=== PATIENT | female | born 1930 | race Caucasian/White ===

== ENCOUNTER 2016-11-16 10:50 | Emergency (ER) | payer MEDICARE, OTHER ==
[~2016-11-16] VITALS: Ht 160 cm; Wt 75.0 kg
[~2016-11-16 10:50] MED LIST: AMLO5TAB2 PO; ATOR20TA65 PO; CHOL100045 PO; CYAN500T53 SL; FISH1CAP15 PO; LEVO100T6 PO; LOSA50TA37 PO; OXYB5TAB10 PO; RIVA20TA PO
[2016-11-16 11:01] VITALS: BP 145/83; PULSE 77; RESP 16; O2SAT 96
--- NOTE | 2016-11-16 11:10 | ED.REPORT ---
HPI-Extremity Problem Lower Date of Service Nov 16, 2016 ED Provider: Daniel Phelps DO The patient is an 86 year old female who presents to the emergency department complaining of right lower leg pain, redness, bruising, and swelling that began 1 week ago. Her symptoms were worse this morning but have improved with walking. She denies any known injury or trauma. She is still able to walk and move all of her joint appropriately. The patient had her left knee replaced last year and subsequently developed a PE. She was treated with Xarelto and i still currently taking this. She denies chest pain or shortness of breath. Nursing Notes Stated Complaint: RIGHT LEG PAIN Chief Complaint: Extremity Trauma Nursing Notes Reviewed: Yes Allergies: Uncoded Allergies: NKDA (Allergy, Unknown, 10/25/16) Scheduled Amlodipine (Amlodipine) 5 Mg Tablet 5 MG PO DAILY Atorvastatin Calcium (Atorvastatin Calcium) 20 Mg Tablet 20 MG PO HS Cholecalciferol (Vitamin D3) (Vitamin D) 1,000 Unit Capsule 1,000 UNIT PO DAILY Cyanocobalamin (Vitamin B-12) (Vitamin B-12) 500 Mcg Tab.subl 500 MCG SL BID Fish Oil/Dha/Epa (Fish Oil 1,200 mg Fish Oil) 1 Each Capsule 1 EACH PO DAILY Levothyroxine (Levothyroxine) 100 Mcg Tablet 100 MG PO DAILY Losartan Potassium (Losartan Potassium) 50 Mg Tablet 50 MG PO DAILY Oxybutynin Chloride (Oxybutynin Chloride) 5 Mg Tablet 5 MG PO BID Rivaroxaban (Xarelto) 20 Mg Tablet 20 MG PO DAILYWD General Time Seen by MD: 10:56 Chief Complaint Leg injury right Hx Obtained From: Patient Arrived By: Walk-in Onset Occurred: 1 week ago Symptom Duration: Since onset Location: : Leg right Quality: Painful Severity: Current: Moderate Severity: Maximum: Moderate Associated with: Reports: Swelling Additional Notes: +redness and warmth Pertinent Negative: Pt denies other symptoms Recent Healthcare: No recent doctor visit, No recent hospitalization Similar Sx Previous: No Past Medical History Past Medical History 1. Neck surgery five years ago. 2. Borderline diabetes. 3. Chronic kidney disease stage 2, 30% renal artery narrowing on an MRI scan a few years ago. 4. Hypertension. 5. Hypothyroidism. 6. Hyperlipidemia. Past Surgical History Left knee replacement Neck surgery Family History Father age 60 of an [place]. Mother at age 76 with congestive heart failure. She had a brother who of cancer, sister of multiple sclerosis and another sister who had bad circulation also . Smoking History Never Smoker Social History Alcohol Use: 1-3 per day Drug Use: Denies drug use Other Social History: Good social support, Local resident Ambulatory Status Independent Review of Systems Musculoskeletal: Reports: Extremity pain, Extremity swelling, Joint pain, Joint swelling Skin: Reports Bruising, Reports Swelling Complete sys rev & neg: except as marked. Respiratory: Denies: Shortness of breath Cardiovascular: Denies: Chest pain Physical Exam Physical Exam Notes: Compartments are soft in the right lower extremity Initial Vital Signs Vital Signs (First) Date Time Temp Pulse Resp B/P Pulse Ox O2 Delivery O2 Flow Rate FiO2 11/16/16 11:01 36.4 77 16 145/83 96 Room Air Initial VS: Reviewed Head / Eyes: Atraumatic, Normocephalic, PERRL ENT: Mucous membranes moist, Conjunctiva normal, No scleral icterus Neck: Supple, Non-tender, Full range of motion Respiratory: No respiratory distress Lymphatic: No lymphadenopathy Upper Extremities: Vascular intact, Neuro intact, No swelling, No tenderness Skin: Warm, Dry, No cyanosis Neurologic: Alert, Oriented, Nonfocal Psychiatric: Mood/affect normal, Behavior normal, Normal thought content Lower Extremity / Pelvis / MS: Neurologic intact, Vascular intact Right lower extremity: Edema with tibial ecchymosis. Slightly warm to touch. Minimal erythema. No tender to touch. No induration or purulence. Ankle / Foot: Neurologic intact, Vascular intact General/Constitutional: Awake, Alert, No acute distress, Well appearing, Cooperative Interpretation & Diagnostics Interpretation & Diagnostics: RLE US: negative for DVT Lab Results Interpretation Test 11/16/16 11:48 Re-Eval/Medical Decision Med Decision/Clinical Course Patient has a right lower extremity hematoma, without obvious vascular flow, not rapidly expanding, no signs of compartment syndrome, no signs of deep vein thrombosis, no signs of infection. Patient declines even Tylenol. Will discharge to follow-up with PCP. Extensive follow-up precautions given. Source of Hx: Old records Re-Evaluation/Progress #1: Time of Eval: 11:23 Re-Evaluation/Progress Note: Discussed plan for US. Re-Evaluation/Progress #2: Time of Eval: 12:45 Re-Evaluation/Progress Note: Rechecked the patient. Discussed results, diagnosis, and plan for discharge. She reports she came here today because her family wanted her to be evaluated. She feels like her symptoms have actually improved. All questions were addressed. Counseled Regarding: Diagnosis, Need for follow-up, When/why to return to ED Discharge & Departure Impression: Primary Impression: Leg hematoma Encounter type: initial encounter Laterality: right Qualified Code: S80.11XA - Contusion of right lower leg, initial encounter Disposition: Home Discharge Condition All VS Reviewed: Yes Condition: Stable Additional Instructions: Continue your current medications. Follow-up with your primary care regarding your hematoma in your leg. Return to ER if develops severe uncontrolled pain in the leg, high fever, warmth or redness or extreme pain, chest pain, shortness of breath or other concerns. Referrals: Samantha Owens MD (PCP) Scribe Attestation Portions of this note were transcribed by Chyna Chapin. I, Dr. Phelps personally performed the history, physical exam and medical decision-making; I reviewed and confirmed the accuracy of the information in the transcribed note. Signed by: Rodney Olea, 11/16/2016 and 1255. copies to: Samantha Owens MD, Timothy S DO Nov 16, 2016 11:10 Chyna Chapin Nov 16, 2016 11:12
[2016-11-16 11:32] VITALS: BP 171/83; PULSE 80; RESP 20; O2SAT 98
[2016-11-16 13:15] VITALS: BP 152/72; RESP 14; O2SAT 98
--- NOTE | 2016-11-16 13:30 | DRSVH ---
PROCEDURE: US VEINOUS LEG DUPLEX UNILATERAL, RIGHT INDICATIONS: RLE swelling, H/O PE TECHNIQUE: Real-time imaging, as well as color and pulse Doppler interrogation, were performed of the lower extr emity deep veins from the inguinal ligament to the popliteal fossa. COMPARISON: None. FINDINGS: The deep veins are normally compressible, and free of intraluminal thrombus. Color and pu lse Doppler demonstrate normal phasic intraluminal flow. There is normal augmentation response to di stal compression maneuver. Complex fluid collection within the medial right anterior blevins measuring 11.1 x 2.6 x 3.7 cm. IMPRESSION: 1. No deep venous thrombosis identified within the right lower extremity. 2. Complex fluid collection within the right medial anterior blevins, likely an evolving hematoma. Gonzales dominick clinically. Dictated by: Nik SCHROEDER Interpreted: Lucretia Navarrete MD on 11/16/2016 at 13:29 Transcribed by: LARISA on 11/16/2016 at 13:29 Approved by: uLcretia Navarrete M.D. on 11/16/2016 at 15:26
== END 2016-11-16 13:16 | disposition home or self-care (01) ==
LOC: SED 10:50
DX: S80.11XA Contusion of right lower leg, initial encounter (principal); X58.XXXA Exposure to other specified factors, initial encounter; Y93.9 Activity, unspecified; Y99.9 Unspecified external cause status; Y92.9 Unspecified place or not applicable; I12.9 Hypertensive chronic kidney disease with stage 1 through stage 4 chronic kidney disease, or unspecified chronic kidney disease; N18.9 Chronic kidney disease, unspecified; Z86.39 Personal history of other endocrine, nutritional and metabolic disease; Z96.652 Presence of left artificial knee joint; Z86.711 Personal history of pulmonary embolism; Z79.01 Long term (current) use of anticoagulants

== ENCOUNTER 2016-12-16 08:54 | Day surgery (SDC) | payer MEDICARE, OTHER ==
[~2016-12-16] VITALS: Ht 162.6 cm; Wt 74.8 kg
[2016-12-16] MEDS ORDERED: MethylprednisoLONE Depot 80 mg/mL Inj IM ONE (08:55)
[2016-12-16] MEDS ORDERED: Iohexol 240 mg/mL 10 mL Inj ONE (08:55)
[2016-12-16] MEDS ORDERED: AMLO-39 PO (09:30)
[2016-12-16] MEDS ORDERED: LOV80 SUBQ (09:30)
[2016-12-16 09:37] VITALS: BP 177/83; PULSE 76; RESP 16; O2SAT 96
[2016-12-16 10:00] VITALS: BP 195/101; PULSE 75; RESP 14; O2SAT 95
--- NOTE | 2016-12-16 15:21 | PCM.PROC ---
Procedure Note Date of Service: Dec 16, 2016 Pre Procedure Diagnosis: PROCEDURE: Lumbar Interlaminar epidural steroid injection. L4-L5 ASA / ANTI-COAGULATION . No asa x 7 days. No Xarelto x7 days PRE-PROCEDURE DIAGNOSIS: Lumbar spinal stenosis POST-PROCEDURE DIAGNOSIS: same INDICATION: 86-year-old patient with low back and leg pain referred by Dr. Ag for L4-L5 interlaminar epidural steroid injection for lumbar spinal stenosis PERFORMED BY: Edgardo Louis MD DESCRIPTION OF PROCEDURE: Patient was met in the holding area. Consent was signed, site was confirmed and all questions were answered. Patient was taken to the procedure suite and placed prone on the procedure table. Area was prepped and draped in sterile fashion. Local anesthesia with 1% lidocaine was injected. An 18-gauge Touhy needle was advanced toward the interlaminar space using fluoroscopic guidance after optimizing the AP view. A loss of resistance syringe was attached as we approached the epidural space in the lateral view. After [id number] was obtained, radioopaque contrast was injected under live fluro which confirmed epidural placement without intravascular uptake. Then , 80 mg depomedrol was injected without difficulty. ANESTHESIA: Local. EBL: None. No Blood Products Used COMPLICATIONS: None SPECIMENS: None POST-PROCEDURE DISPOSITION: Patient was returned to the holding area in stable condition. They were discharged home when all discharge criteria were met. Evaluation/Physical Exam before discharge revealed: DISCHARGE MEDICATIONS: FOLLOW UP: Followup with Dr. Ag in 2-4 weeks. Edgardo Louis MD * Pain Management * Anesthesiology copies to: Edgardo Louis MD, Carlton K MD Dec 16, 2016 15:21
== END 2016-12-16 23:59 | disposition home or self-care (01) ==
LOC: END 08:54
PROVIDERS: ATTEND Anesthesiology Pain Medicine
DX: M48.06 Spinal stenosis, lumbar region (principal); M54.9 Dorsalgia, unspecified; I12.9 Hypertensive chronic kidney disease with stage 1 through stage 4 chronic kidney disease, or unspecified chronic kidney disease; N18.2 Chronic kidney disease, stage 2 (mild); E03.9 Hypothyroidism, unspecified; E78.5 Hyperlipidemia, unspecified; Z96.652 Presence of left artificial knee joint; Z86.73 Personal history of transient ischemic attack (TIA), and cerebral infarction without residual deficits
CPT/HCPCS: 62323; J1040

== ENCOUNTER 2017-01-12 11:21 | Observation (INO) | payer MEDICARE, OTHER ==
[~2017-01-12] VITALS: Ht 162.6 cm; Wt 75.1 kg
[2017-01-12 11:32] VITALS: BP 157/69; PULSE 61; RESP 18; O2SAT 99
--- NOTE | 2017-01-12 11:37 | ED.REPORT ---
HPI-Neurologic Deficit Date of Service Jan 12, 2017 ED Provider: Daniel Phelps DO Pt is an 86 y/o female w/ a hx of CKD II, HTN, hyperlipidemia, hypothyroid, presenting to the ED via EMS c/o now resolved left-sided numbness onset 10:00 today. The patient was watching TV and suddenly experienced left hand numbness with associated left face and tongue numbness. Upon EMS arrival, her BP was 196/ 96. Pt denies CEJA, focal weakness, facial droop, vision change, speech change, dizziness, lightheadedness, CP, abdominal pain, SOB, fever, chills. She was previously on anticoagulants but was taken off it by her javascript front end developer Dr. Moore 2 weeks ago. She is not taking ASA or Plavix. Pt denies history of stroke or TIA. Nursing Notes Stated Complaint: LEFT SIDE TINGELING Chief Complaint: Neuro Symptoms/ Deficits Nursing Notes Reviewed: Yes Allergies: Coded Allergies: nitrofurantoin (Verified Allergy, Intermediate, COUGH, CHILLES, 12/15/16) codeine (Verified Allergy, Mild, 12/15/16) Scheduled Amlodipine (Amlodipine) 5 Mg Tablet 5 MG PO DAILY Atorvastatin Calcium (Atorvastatin Calcium) 20 Mg Tablet 20 MG PO HS Cholecalciferol (Vitamin D3) (Vitamin D) 1,000 Unit Capsule 1,000 UNIT PO DAILY Cyanocobalamin (Vitamin B-12) (Vitamin B-12) 500 Mcg Tab.subl 500 MCG SL BID Fish Oil/Dha/Epa (Fish Oil 1,200 mg Fish Oil) 1 Each Capsule 1 EACH PO DAILY Levothyroxine (Levothyroxine) 100 Mcg Tablet 100 MG PO DAILY Losartan Potassium (Losartan Potassium) 50 Mg Tablet 50 MG PO DAILY Oxybutynin Chloride (Oxybutynin Chloride) 5 Mg Tablet 5 MG PO DAILY Rivaroxaban (Xarelto) 20 Mg Tablet 20 MG PO DAILYWD General Time Seen by Provider: 11:40 Chief Complaint Numbness hand... (Left) Hx Obtained From: Patient, EMS Arrived By: Ambulance Sudden in Onset?: Yes Onset Occurred: 1 - 4 hours ago Symptom Duration: 1 - 15 minutes Progression Since Onset: Resolved Severity: Current: No pain currently Severity: Maximum: No pain Similar Sx Previous: No Risk Factors TPA Administration/Criteria Stroke Thrombolytic Therapy : TPA Considered: Yes TPA Administered Intravenously: No, not indicated NIH Stroke Scale Level of Consciousness: Alert and responsive (0) Ask Month & Age: Both questions right (0) Open/Close Eyes/Hand Tobacco Primer Machine Operator: Performs both tasks (0) Horizontal EO Movements: None (0) Visual Dalal: No visual loss (0) Facial Palsy: Normal symmetry (0) Right Arm Motor Drift (10s): No drift 10 sec (0) Left Arm Motor Drift (10s): No drift 10 sec (0) Right Leg Motor Drift (5s): No drift 5 sec (0) Left Leg Motor Drift (5s): No drift 5 sec (0) Limb Ataxia FNF/Heel-Goldstein: No ataxia (0) Sensation (Arms/Legs/Face): No sensory loss (0) Language Aphasia: No aphasia, normal (0) Dysarthria: No dysarthria, normal (0) Extinction/Inattention: No exctinct/inattent (0) NIHSS Score: 0 Time NIHSS Performed: 11:41 Date NIHSS Performed: Jan 12, 2017 Past Medical History Past Medical History 1. Neck surgery five years ago. 2. Borderline diabetes. 3. Chronic kidney disease stage 2, 30% renal artery narrowing on an MRI scan a few years ago. 4. Hypertension. 5. Hypothyroidism. 6. Hyperlipidemia. Past Surgical History Left knee replacement Neck surgery Family History Father age 60 of an [place]. Mother at age 76 with congestive heart failure. She had a brother who of cancer, sister of multiple sclerosis and another sister who had bad circulation also . Smoking History Never Smoker Social History Alcohol Use: 1-3 per day Drug Use: Denies drug use Other Social History: Good social support, Local resident Ambulatory Status Independent Review of Systems Constitutional: Denies: Chills, Fever Respiratory: Denies: Non-productive cough, Shortness of breath Cardiovascular: Denies: Chest pain, Dyspnea on exertion GI: Denies: Abdominal pain, Nausea, Vomiting Neurologic: Reports: Numbness, Denies: Abnormal movement, Bladder dysfunction, Bowel dysfunction, Change LOC , Confusion, Dizziness, Focal weakness, Headache, Lightheaded, Problem walking, Seizure, Shaking, Slurred speech, Spinning sensation, Syncope, Unable to speak, Vision change, Weakness Complete sys rev & neg: except as marked. Physical Exam Initial Vital Signs Vital Signs (First) Date Time Temp Pulse Resp B/P Pulse Ox O2 Delivery O2 Flow Rate FiO2 01/12/17 11:32 36.6 61 18 157/69 99 Room Air Initial VS: Reviewed, Vital signs normal ENT: Mucous membranes moist, Conjunctiva normal, No scleral icterus Neck: Supple, Full range of motion Abdomen / GI: Soft, Non-tender, No guarding, No rebound, No distention Extremities: Vascular intact, Neuro intact, No swelling, No tenderness Skin: Warm, Dry, No cyanosis Psychiatric: Mood/affect normal, Behavior normal, Normal thought content General/Constitutional: Awake, Alert, No acute distress, Well appearing, Cooperative, Not toxic appearing Head / Eyes: Atraumatic, Normocephalic, PERRL, EOMI, No nystagmus Respiratory / Chest: Atraumatic, Breath sounds NL, Breath sounds = bilat, No respiratory distress, No rales, No rhonchi, No wheezing, No retractions, No stridor, No chest tenderness, No chest wall deformity, No crepitus Cardiovascular: Heart rate NL, Regular rhythm, Heart sounds NL, No gallop, No murmurs, No rubs, Cap refill not delayed, Peripheral circulation NL Neurologic: Oriented X3, Speech NL, No motor deficits, No sensory deficits, CN II - XII intact, Cerebellar NL, Memory NL Interpretation & Diagnostics Lab Results Interpretation Result Diagram: 01/12/17 1156 01/12/17 1156 Test 01/12/17 11:56 01/12/17 13:21 01/12/17 13:42 White Blood Count 5.0th/mm3 (3.8-10.1) Red Blood Count 4.11mil/mm3 (3.90-5.20) Hemoglobin 12.6g/dL (12.0-15.6) Hematocrit 37.9% (35.0-46.0) Mean Corpuscular Volume 92.2fL (81-100) Mean Corpuscular Hemoglobin 30.7pg (27.0-35.0) Mean Corpuscular Hemoglobin Concent 33.2% (32.0-37.0) Red Cell Distribution Width 13.9% (12.3-15.4) Platelet Count 202bil/L (150-400) Neutrophils (%) (Auto) 56.9% (40-74) Lymphocytes (%) (Auto) 28.8% (14-46) Monocytes (%) (Auto) 10.3% (4-12) Eosinophils (%) (Auto) 3.2% (0-5) Basophils (%) (Auto) 0.6% (0-3) Prothrombin Time 9.9sec (8.1-12.5) Prothromb Time International Ratio 0.93ratio Activated Partial Thromboplast Time 27.6sec (22.8-33.0) Sodium Level 136mEq/L (134-144) Potassium Level 4.2mEq/L (3.5-5.2) Chloride Level 99mEq/L (97-108) Carbon Dioxide Level 20mmol/L (18-29) Blood Urea Nitrogen 17mg/dL (8-27) Creatinine 1.00mg/dL (0.57-1.00) Estimat Glomerular Filtration Rate 76mL/min (>59) Glucose Level 96mg/dL (60-99) Calcium Level 9.8mg/dL (8.5-10.1) Total Bilirubin 0.5mg/dL (0.0-1.2) Aspartate Amino Transf (AST/SGOT) 24U/L (0-50) Alanine Aminotransferase (ALT/SGPT) 21U/L (0-32) Alkaline Phosphatase 82U/L (25-165) Troponin T 0.010ug/L (0.0-0.011) Total Protein 8.2g/dL (6.4-8.4) Albumin 4.5g/dL (3.4-5.0) Urine Color Yellow (YELLOW) Urine Appearance Clear (CLEAR,HAZY) Urine pH 7.0 (5.0-8.0) Urine Specific [place] 1.010 (1.003-1.035) Urine Protein Negativemg/dL (NEG,TRACE) Urine Glucose (UA) Negativemg/dL (NEGATIVE) Urine Ketones Negativemg/dL (NEGATIVE) Urine Occult Blood Negative (NEGATIVE) Urine Nitrite Negative (NEGATIVE) Urine Bilirubin Negative (NEGATIVE) Urine Urobilinogen Normalmg/dL (NORMAL) Urine Leukocyte Esterase Negative (NEGATIVE) Urine RBC 0-2/hpf (0-2) Urine WBC 0-5/hpf (0-5) Urine Epithelial Cells Occasional/hpf (NONE-MOD) Urine Crystals None seen (NONE SEEN) Urine Bacteria None/hpf (NONE-FEW) Urine Hyaline Casts None/lpf (NONE) Urine Granular Casts None seen (NONE SEEN) Urine Waxy Casts None seen (NONE SEEN) Urine Red Blood Cell Casts None seen (NONE SEEN) Urine White Blood Cell Casts None seen (NONE SEEN) Urine Mucus None seen (None Seen) Urine Trichomonas None seen (NONE SEEN) Urine Yeast None (NONE SEEN) Urinalysis Comment None Urine Culture Reflexed Not indicated Magnesium Level 1.9mg/dL (1.6-2.6) ECG Interpretation ECG Interpretation: Sinus rhythm rate 65 Probable LVH Time: 12:05 Interpreted by: ED physician Normal ECG Interpretation: No acute ischemic changes, No change from prior ECGs CT Head Interpretation IMPRESSION: 1. No acute intracranial hemorrhage. 2. Extensive chronic small vessel ischemic changes. 3. Moderate parenchymal volume loss. Dictated by: Avel Carvajal M.D. on 01/12/2017 at 11:58 Approved by: Avel Carvajal M.D. on 01/12/2017 at 12:00 Study: Head CT no contrast Interpretation / Wet Read by: Interpret - Radiologist Re-Eval/Medical Decision Med Decision/Clinical Course Findings consistent with TIA. Aspirin given. Not a TPA candidate as the symptoms have completely resolved. Will be admitted. Re-Evaluation/Progress : Time of Eval: 13:27 )( Re-Eval Neurologic Exam: Alert, Pt is back to baseline, Oriented X3, CN II - XII intact, Speech normal, No motor deficits, No sensory deficits, Cerebellar normal Re-Evaluation/Progress Note: Pt rechecked. Informed pt of need for admission for TIA workup. Pt understands and agrees with plan for admission. All questions addressed. Consultation : Referral / Consult Name: Javy Selby MD Consulted With: Hospitalist Call Returned at: 13:43 Sales Account Specialist: Will see patient, Agrees with eval, Agrees with plan, Accepts admit Counseled Regarding: Diagnosis, Lab results, Need for admission Discharge & Departure Impression: Primary Impression: TIA (transient ischemic attack) Transient cerebral ischemia type: unspecified Qualified Code: G45.9 - Transient cerebral ischemic attack, unspecified Disposition: ADMITTED TO HOSPITAL Discharge Condition All VS Reviewed: Yes Condition: Stable Referrals: Samantha Owens MD (PCP) Scribe Attestation Portions of this note were transcribed by José Leal. I, Dr. Phelps personally performed the history, physical exam and medical decision-making; I reviewed and confirmed the accuracy of the information in the transcribed note. Signed by Rodney Olivarez, 01/12/17 - 1143 copies to: Samantha Owens MD, Timothy S DO Jan 12, 2017 11:37 JOSÉ LEAL Jan 12, 2017 11:44
[2017-01-12 11:59] LABS: BASOPHILS % (AUTO) 0.6 % (0-3); EOSINOPHILS % (AUTO) 3.2 % (0-5); MONOCYTES % (AUTO) 10.3 % (4-12); Mean Corpuscular Hemoglobin 30.7 pg (27.0-35.0); Mean Corpuscular Volume 92.2 fL (81-100); NEUTROPHILS % (AUTO) 56.9 % (40-74); Platelet Count 202 bil/L (150-400)
[2017-01-12 12:06] LABS: INR 0.93 ratio
[2017-01-12 12:11] LABS: TROPONIN T 0.01 ug/L (0.0-0.011)
--- NOTE | 2017-01-12 13:02 | DRSVH ---
PROCEDURE: CT BRAIN WITHOUT CONTRAST ([id number]) INDICATIONS: Stroke TECHNIQUE: Noncontrast 4.5 mm thick angled axial sections acquired from the foramen magnum to the vertex, with c oronal reformats. COMPARISON: [facility], CT, CT BRAIN WO CON, 06/22/2016, 17:18. [facility], MR, STROKE PROTOCOL (PNL), 06/29/2012, 9:19. FINDINGS: Image quality: Diagnostic Brain: There is no acute intra-axial or extra-axial hemorrhage. No extra-axial fluid collection is i dentified. There is no midline shift or mass effect. The orbits are grossly unremarkable. No large areas of diffusely decreased attenuation are evident within the brain to suggest diffuse cer ebral edema. Extensive confluent areas of low-attenuation are present within the periventricular whi te matter of the supratentorial brain. This appearance is similar to the previous exam. The ventricles and cortical sulci are prominent, similar to the prior study. Bones: Calvarium and visualized facial bones are grossly intact. The imaged paranasal sinuses and m astoid air cells are clear. Postoperative changes involving the C1 and C2 spinous processes are note d. IMPRESSION: 1. No acute intracranial hemorrhage. 2. Extensive chronic small vessel ischemic changes. 3. Moderate parenchymal volume loss. Dictated by: Avel Carvajal M.D. on 01/12/2017 at 11:58 Approved by: Avel Carvajal M.D. on 01/12/2017 at 12:00
[2017-01-12 13:15] VITALS: BP 188/98; PULSE 79; RESP 18; O2SAT 99
[2017-01-12] MEDS ORDERED: Alum-Mag Hydrox-Simeth 30 mL Suspension PO PRN (13:45)
[2017-01-12] MEDS ORDERED: Labetalol 5 mg/mL 4 mL Inj IVPUSH PRN (13:45)
[2017-01-12] MEDS ORDERED: Ondansetron 2 mg/mL 2 mL Inj IV PRN (13:45)
[2017-01-12] MEDS ORDERED: Polyethylene Glycol (PEG) 17 Gm Powder PO PRN (13:45)
--- NOTE | 2017-01-12 13:54 | NUR ---
Evaluation completed. Please go to "Notes" then click on "Assessments and Notes" (bottom left corner of screen). Then select appropriate discipline tab on top of screen.
--- NOTE | 2017-01-12 13:54 | PCM.HPMED ---
Subjective Date of Service Jan 12, 2017 Primary Provider: Admitting Physician: Primary Care Physician: Samantha Owens MD Attending Physician: Chief Complaint: Left hand/face numbness for less than 15 minutes resolved in the last 3 hours History of Present Illness: 86-year-old female with history of hypertension hyperlipidemia never smoked recently of Xarelto for pulmonary embolism postoperative in the fall for right knee arthroplasty presents to the emergency room with left arm/facial numbness. She states she was sitting at home and watching television when she noticed the side of her hand indicating the thumb and first 2 digits went numb and up into her arm and then she started to notice an interface and her tongue. The whole episode lasted about 15 minutes this since subsided. She was not, come to the emergency room however her 's caregiver (he has severe end-stage dementia) called 911 and here she is. Her symptoms totally resolved. She was feeling fine no chest pain palpitations shortness of breath or anything else to go with this nothing like this is ever happened to her before. Review of Systems: Gen.: No fevers chills weight loss weight gain Eyes: no visual disturbances or blurring vision HEENT: No nose/throat drainage, no pain in ears or throat, no hearing loss Lymph: No lymph nodes noted Cardiac: No chest pain, orthopnea, PND, palpitations , pedal edema or dyspnea on exertion Pulmonary: no cough, wheezing or bringing up of sputum GI: No anorexia nausea vomiting blood or black in the stool : no dysuria hematuria urinary frequency or decrease in urine output Musculoskeletal: Joint swelling no joint pain no new muscle aches or back pain Neuro: No syncope, seizures no loss of consciousness + new focal weakness, numbness or tingling left hand/face Psychiatric: New new anxiety insomnia or depression Endocrine: No new heat or cold intolerances polyuria or polydipsia Hematology: No lymphadenopathy or easy bleeding or bruising noted skin: No new rashes, stasis dermatitis Allergies Coded Allergies: nitrofurantoin (Verified Allergy, Intermediate, COUGH, CHILLES, 12/15/16) codeine (Verified Allergy, Mild, 12/15/16) Home Medications Amlodipine (Amlodipine) 5 Mg Tablet 5 MG PO DAILY Atorvastatin Calcium (Atorvastatin Calcium) 20 Mg Tablet 20 MG PO HS Cholecalciferol (Vitamin D3) (Vitamin D) 1,000 Unit Capsule 1,000 UNIT PO DAILY Cyanocobalamin (Vitamin B-12) (Vitamin B-12) 500 Mcg Tab.subl 500 MCG SL BID Fish Oil/Dha/Epa (Fish Oil 1,200 mg Fish Oil) 1 Each Capsule 1 EACH PO DAILY Levothyroxine (Levothyroxine) 100 Mcg Tablet 100 MG PO DAILY Losartan Potassium (Losartan Potassium) 50 Mg Tablet 50 MG PO DAILY Oxybutynin Chloride (Oxybutynin Chloride) 5 Mg Tablet 5 MG PO DAILY PMH 1. Segmental right upper lobe pulmonary embolism diagnosed by CT angiogram June 22, 2016, one week after total left knee arthroplasty on June 16. A venous duplex on August 03, 2016, showed a DVT. 2. Left total knee replacement on June 16, 2016. 3. Chronic kidney disease, stage 2. 4. Hypertension. 5. Hypothyroidism. 6. Hyperlipidemia. 7. Possible early diabetes. 8. Spinal stenosis. 9. G4, P4, AB0. 10. C-spine fusion. Past Surgical History Left knee replacement Neck surgery Family History Father age 60 of an DC. Mother at age 76 with congestive heart failure. She had a brother who of cancer, sister of multiple sclerosis and another sister who had bad circulation also . Smoking History Never Smoker Social History Alcohol Use: 1-3 per day Drug Use: Denies drug use Other Social History: Good social support, Local resident Ambulatory Status Independent Social History Hx Alcohol Use: Yes (one glass of wine/day) Hx Substance Use: No Hx Tobacco Use: No Smoking Status: Never Smoker Exam Vital Signs Vital Sign - Last Date Time Temp Pulse Resp B/P Pulse Ox O2 Delivery O2 Flow Rate FiO2 01/12/17 13:15 79 18 188/98 99 Room Air 01/12/17 11:32 36.6 Exam Gen.- A+ O 3 no apparent distress. Heavy white female Eyes- open conjunctiva clear, pupils equal nonicteric Mouth- oral mucosa moist, no exudate ENT- ears normal, nose normal Neck- supple/trach midline CVS- RRR no murmur or gallop Lungs- CTA GI- NABS/NT soft Musc- moving 4 no obvious deformity Neuro- cranial nerves II through XII intact, 5 out of 5 strength upper and lower extremities, coordination intact, there is no pronator drift, sensation bilaterally intact upper and lower extremities Skin- warm and dry, no rashes/lesions/wounds noted Psych- pleasant and appropriate, Lab and Diagnostics Result Diagram: 01/12/17 1156 01/12/17 1156 X-Rays, CTs and MRIs MRI brain 1. No acute intracranial abnormalities. 2. Moderate cerebral volume loss and severe chronic microvascular ischemic changes. 3. Mild maxillary sinus disease bilaterally. Dictated by: Lucretia Navarrete M.D. on 01/12/2017 at 15:03 Carotid Doppler Less than 50% bilateral internal carotid artery stenosis. Hypertension at time of study. Dictated by: Nik Lopes RRA Interpreted: Ruthann Castro MD on 01/12/2017 at 15:27 CT Head Interpretation IMPRESSION: 1. No acute intracranial hemorrhage. 2. Extensive chronic small vessel ischemic changes. 3. Moderate parenchymal volume loss. Dictated by: Avel Carvajal M.D. on 01/12/2017 at 11:58 12-lead ECG ECG Interpretation: Concurrently reviewed by me in the patient's room and presence 01/12 Sinus rhythm rate 65 Probable LVH Normal ECG Interpretation: No acute ischemic changes, No change from prior ECGs Assessment & Plan 86-year-old female with severe microvascular changes on her MRI presents with left-sided facial and left arm numbness that lasted less than a half an hour totally resolved by now. Patient was not on any anticoagulation at the time. #TIA- workup thus far negative, awaiting echocardiogram and monitoring. If echo was done soon we may discharge patient this evening 01/12 -I feeling is that given her MRI telemetry and echocardiogram will be low yield therefore we do not need to hold her for the results but I would like the echo done before she is discharged. -Starting ASA 81 mg daily #Hypertension- blood pressure meds on parameters, allowing permissive hypertension may be not up to 220 but holding SBP less than 180 in the morning. #Hyperlipidemia- continue statin as at home #Prophylaxis- DVT with Lovenox/SCDs, GI not indicated #Disposition - patient comes from independent living at home she recently filled out appeal ST form indicating she desires to be DO NOT RESUSCITATE Time spent 45 minutes Javy Selby MD Jan 12, 2017 13:46
[2017-01-12 13:57] LABS: APPEARANCE,URINE CLEAR (CLEAR,HAZY); COLOR,URINE YELLOW (YELLOW); OCCULT BLOOD,URINE NEGATIVE (NEGATIVE); UROBILINOGEN,URINE NORMAL (NORMAL)
[2017-01-12 14:26] VITALS: BP 188/98; PULSE 79; RESP 18; O2SAT 99
[2017-01-12 14:45] VITALS: BP 178/80; PULSE 74; RESP 20; O2SAT 99
--- NOTE | 2017-01-12 14:45 | NUR ---
Admit to room 250-2 Arrived in room via stretcher from ER Able to stand and transfer into bed. A&O OREILLY Daughter arrived with patient.
--- NOTE | 2017-01-12 15:08 | DRSVH ---
PROCEDURE: MRI BRAIN WITHOUT CONTRAST ([id number]) INDICATIONS: TIA TECHNIQUE: Non-contrast axial T1 spin echo, axial T2 fast spin echo, sagittal and axial FLAIR, coronal T2 fast s pin echo, axial gradient echo, axial diffusion and ADC through the brain. COMPARISON: [facility], MR, STROKE PROTOCOL (PNL), 06/29/2012, 9:19. [facility] octaviano, CT, CT BRAIN WO CON, 01/12/2017, 12:43. FINDINGS: Image quality: Excellent. CSF spaces: Ventricles appear symmetric in size and shape. Basal cisterns are patent. No extra-axi al fluid collections. Brain: No intracranial bleeds or mass effects. There is cerebral volume loss for age. There are mo derate periventricular and severe deep white matter chronic small vessel ischemic changes. Chronic s mall vessel ischemic changes are also present in midbrain and michel. No acute abnormalities in brainst em. Diffusion-weighted images show no acute ischemic insults. No chronic ischemic insults. Normal intravascular flow voids are present. Skull and face: Calvarial bone marrow is normal in signal. Orbits are normal. Sinuses: Bilateral maxillary sinus mucosal thickening and mastoids are clear. IMPRESSION: 1. No acute intracranial abnormalities. 2. Moderate cerebral volume loss and severe chronic microvascular ischemic changes. 3. Mild maxillary sinus disease bilaterally. Dictated by: Lucretia Navarrete M.D. on 01/12/2017 at 15:03 Approved by: Lucretia Navarrete M.D. on 01/12/2017 at 15:07
--- NOTE | 2017-01-12 15:28 | DRSVH ---
PROCEDURE: US BILATERAL DUPLEX DOPPLER IMAGING OF THE CAROTIDS ([id number]) INDICATIONS: Evaluate stroke follow up TECHNIQUE: Color and pulse Doppler interrogation was performed of both carotid systems, with image documentation and velocity measurements. COMPARISON: None. FINDINGS: All stenosis calculations are based on NASCET criteria. Right side: Brachial blood pressure: Not obtained. Common carotid artery. PSV: 46.60 cm/s Internal Carotid Artery PSV- Proximal: 59.80 cm/s Mid-lon.90 cm/s Distal: 90.10 cm/s EDV - Proximal: 22.80 cm/s Mid-lon.10 cm/s Distal: 25.90 cm/s External Carotid Artery(Proximal) PSV: 93.80 cm/s ICA/CCA PSV ratio: 1.9 Delcid scale imaging description: Minimal plaque. Percent internal carotid artery stenosis: Less than 50%. Vertebral artery: Flow direction is antegrade. Left side: Brachial blood pressure: 188/98 mm Hg. Common Carotid Artery(Distal) PSV: 97.50 cm/s Internal Carotid Artery PSV - Proximal: 97.30 cm/s Mid-lon.80 cm/s Distal: 75.40 cm/s EDV - Proximal: 23.30 cm/s Mid-lon.90 cm/s Distal: 24 cm/s External Carotid Artery(Proximal) PSV: 70.30 cm/s ICA/CCA PSV ratio: 1.3 Delcid scale imaging description: Minimal plaque. Percent internal carotid artery stenosis: Less than 50%. Vertebral artery: Flow direction is antegrade. IMPRESSION: Less than 50% bilateral internal carotid artery stenosis. Hypertension at time of study. Dictated by: Nik Lopes RR Interpreted: Ruthann Castro MD on 01/12/2017 at 15:27 Transcribed by: RORO on 01/12/2017 at 15:28 Approved by: Ruthann Castro MD, PhD on 01/12/2017 at 16:35
[2017-01-12 16:15] VITALS: PULSE 71
[2017-01-12] MEDS ORDERED: ASPI-973 PO (16:37)
[2017-01-12] MEDS ORDERED: MELA1CAP3 PO (16:39)
--- NOTE | 2017-01-12 18:06 | PCM.DIMED ---
Discharge Instructions Date of Service Jan 12, 2017 Dates of Hospitalization Jan 12, 2017 at 13:45 Discharge Diagnosis Discharge Diagnosis TIA Test Results CT, MRI, ECHO, blood work all normal Diet Heart Healthy Patient Instructions If symptoms reccur don't or naything remotley resembling a stroke occur, get to the Hospital [facility] Follow-up plan call pcp on discharge [facility] Follow-up Provider: Samantha Owens MD Follow-up with PCP in: Javy Nelson MD Jan 12, 2017 18:06
--- NOTE | 2017-01-12 18:15 | NUR ---
Echo/numbness called ECHO dept at 1630 asking if test can be done today. Not able to do today. Patient notified no c/o numbness on left side of face, tongue, or arm since arrival to floor.
--- NOTE | 2017-01-12 18:29 | NUR ---
Discharge Noted order for discharge. Notified MD echo was not able to be completed, does he still want the discharge? Addendum: 01/12/17 at 1831 by SAMINA HOROWITZ RN confirmed Pt not to discharge until ECHO complete.
--- NOTE | 2017-01-12 19:16 | NUR ---
Case Management: SANJAY explained to patient and many family members at 1905, all questions answered. Signed original placed in chart, copy given to patient. Medicare Part D Self-Administered Drug Information given to patient. Zahida Higginbotham RN
[2017-01-12 20:49] VITALS: BP 154/69; PULSE 74; RESP 18; O2SAT 96
[2017-01-13 02:01] VITALS: BP 134/74; PULSE 64; RESP 16; O2SAT 96
[2017-01-13 05:15] VITALS: PULSE 60
--- NOTE | 2017-01-13 05:16 | NUR ---
Status/Activity pt A&O x4, denies numbness on left side of face,tongue, or arm. pt ambulatory to the rest room with SBA for safety. gait steady. BP was 154/69 at bed time and 134/74 at 02.. Addendum: 01/13/17 at 0528 by LORETTA BAEZ RN Status/Activity pt A&O x4, denies numbness on left side of face,tongue, or arm. BP was 154/69 at bed time and 134/74 at 0200. pt ambulatory to the rest room with SBA for safety. gait steady. will continue to monitor.
[2017-01-13 06:12] VITALS: BP 172/72; PULSE 61; RESP 18; O2SAT 98
[2017-01-13 08:00] VITALS: PULSE 67
[2017-01-13 08:45] VITALS: BP 131/75; PULSE 61; RESP 12; O2SAT 97
--- NOTE | 2017-01-13 09:04 | DRSVH ---
[facility] [address] [place] [place] [address] Echocardiogram Report Name: TAE RIVERA BStudy Date: 01/13/2017 Height: 64 in Hospital Exam Location: [facility] Weight: 169 lb Gender: Female BSA: 1.8 m2 : 1930 Age: 86 yrs BP: 134/74 mmHg Reason For Study: TIA Ordering Physician: HOSPITALIST [facility] Performed By: Bela Hatch Referring Physician: Dr Samantha Owens Interpretation Summary 1. Normal left ventricular size with mild septal thickening and normal systolic function with an estimated EF of 55 to 60% 2. Normal right ventricular size and systolic function. 3. No evidence for significant valvular pathology Compared to the previous study, no significant change Procedure: A two-dimensional transthoracic echocardiogram with color flow and Doppler was performed. The study quality was technically adequate. Comparison is made with the echocardiogram of 06/15/2016. The patient was in normal sinus rhythm during the exam. The patient had frequent PACs during the exam. Left Ventricle: The left ventricle is normal in size. Proximal septal thickening is noted. There is mild proximal septal thickening noted. The ejection fraction is estimated to be 55-60%. There are no obvious focal wall motion abnormalities noted but poor endocardial definition reduces the sensitivity for the detection of such. The E/A ratio is reversed with an elevated E/E', suggesting impaired early relaxation of the left ventricle with possible increased filling pressures. Right Ventricle: The right ventricle is normal in size and function. Atria: Both atria are normal in size. No color doppler evidence for an ASD. Mitral Valve: The mitral valve is normal in structure and function. There is mild mitral regurgitation. Aortic Valve: The aortic valve is trileaflet. The aortic valve opens well. The aortic valve is mildly calcified. There is trace aortic regurgitation. Tricuspid Valve: The tricuspid valve leaflets are thin and pliable. There is a trace or physiologic amount of tricuspid regurgitation. The right ventricular systolic pressure is estimated at 31 mmHg assuming a right atrial pressure of 3 mm Hg. Pulmonic Valve: The pulmonic valve is not well seen, but is grossly normal. There is a trace or physiologic amount of pulmonic regurgitation. Great Vessels: The aortic root is normal size. The ascending aorta is normal in size. The aortic arch is normal in size. The IVC is of normal diameter and collapses greater than 50% with a sniff. This suggests a low right atrial pressure of 3 mm Hg. Pericardium/ Pleura There is no pericardial effusion. MMode/2D Measurements & Calculations LVIDd: 4.3 cm RA long axis LVOT diam: 2.0 cm LVIDs: 3.3 cm LA A2 area: 11.2 cm Ao root diam FS: 22.6 % LA A4 area: 13.9 cm RA area IVSd: 1.2 cm LA length (vol) asc Aorta Diam LVPWd: 1.00 cm : 11.2 cm LA vol: 30.0 ml RA vol Ao Arch Diam (Prox LA vol index : 21.3 ml Trans): 3.0 cm RA : 11.7 mm2 IVC diam: 1.9 cm LV velázquez. diameter/BSA LV sys. diameter/BSA RVD1 (basal) RVD2 (mid): 2.4 cm (cm/m^2): 2.4 (cm/m^2): 1.8 Doppler Measurements & Calculations Ao V2 max MV E max andres MV E/A: 0.68 TR max andres : 128.5 cm/sec : 63.8 cm/sec Med Peak E' Andres : 263.0 cm/sec Ao max PG MV A max andres TR max PG : 6.6 mmHg : 93.7 cm/sec E/E' med: 18.9 : 27.7 mmHg Ao mean PG MV P1/2t: 78.0 msec Lat Peak E' Andres PA V2 max : 83.7 cm/sec LVOT Max Andres E/E' lat: 11.0 PA mean PG : 80.9 cm/sec E/e' average: 15.0 Pulm A Revs Dur PA Accel Time SABRA(I,D): 2.1 cm : 0.13 sec sev ratio MV A dur: 0.15 sec MV dec time MV P1/2t max andres Ao V2 mean LV V1 max PG : 0.27 sec : 81.9 cm/sec MVA(P1/2t): 2.8 cm2 Ao V2 VTI: 28.5 cm LV V1 VTI SABRA(V,D): 1.9 cm2 : 19.6 cm PA V2 mean SABRA indexed to BSA Ed Rubi Revs Dur - MV A : 59.1 cm/sec (cm^2/m^2): 1.2 Dur: -0.01 msec Reading Physician:09:03 AM
--- NOTE | 2017-01-13 12:00 | NUR ---
Discharge Pt dc'd in WC with daughter at 1145. Stable and w/o concerns. All discharge paperwork and instructions reviewed. Pt verbalized understanding. IV dc'd w/o complication.
--- NOTE | 2017-01-13 19:26 | PCM.DC.MED ---
Discharge Summary Date of Service Jan 13, 2017 Dates of Hospitalization Date of Hospital Admission Jan 12, 2017 at 13:45 Date of Discharge: Jan 13, 2017 Providers: Admitting Physician: Javy Selby MD Primary Care Physician: Samantha Owens MD Attending Physician: Javy Selby MD Diagnosis at Time of Discharge Diagnosis at Time of Discharge TIA Procedures XRay, CTs & MRIs MRI brain 1. No acute intracranial abnormalities. 2. Moderate cerebral volume loss and severe chronic microvascular ischemic changes. 3. Mild maxillary sinus disease bilaterally. Dictated by: Lucretia Navarrete M.D. on 01/12/2017 at 15:03 Carotid Doppler Less than 50% bilateral internal carotid artery stenosis. Hypertension at time of study. Dictated by: Nik ROSAS Interpreted: Ruthann Castro MD on 01/12/2017 at 15:27 CT Head Interpretation IMPRESSION: 1. No acute intracranial hemorrhage. 2. Extensive chronic small vessel ischemic changes. 3. Moderate parenchymal volume loss. Dictated by: Avel Carvajal M.D. on 01/12/2017 at 11:58 ECG 12 Lead ECG Interpretation: Concurrently reviewed by me in the patient's room and presence 01/12 Sinus rhythm rate 65 Probable LVH Normal ECG Interpretation: No acute ischemic changes, No change from prior ECGs Cardiac Echo Impression Echo 01/13 Interpretation Summary 1. Normal left ventricular size with mild septal thickening and normal systolic function with an estimated EF of 55 to 60% 2. Normal right ventricular size and systolic function. 3. No evidence for significant valvular pathology Compared to the previous study, no significant change Brief History 86-year-old female with history of hypertension hyperlipidemia never smoked recently of Xarelto for pulmonary embolism postoperative in the fall for right knee arthroplasty presents to the emergency room with left arm/facial numbness. She states she was sitting at home and watching television when she noticed the side of her hand indicating the thumb and first 2 digits went numb and up into her arm and then she started to notice an interface and her tongue. The whole episode lasted about 15 minutes this since subsided. She was not, come to the emergency room however her 's caregiver (he has severe end-stage dementia) called 911 and here she is. Her symptoms totally resolved. She was feeling fine no chest pain palpitations shortness of breath or anything else to go with this nothing like this is ever happened to her before. Hospital Course 86-year-old female with severe microvascular changes on her MRI presents with left-sided facial and left arm numbness that lasted less than a half an hour totally resolved by now. Patient was not on any anticoagulation at the time. Aspirin is indicated. More aggressive risk management for modification as able. #TIA- workup thus far negative, awaiting echocardiogram and monitoring. If echo was done soon we may discharge patient this evening 01/12 -CT scan, carotid Doppler, MRI, echocardiogram all unrevealing other than chronic microvascular disease -Starting ASA 81 mg daily #Hypertension- blood pressure meds on parameters, allowing permissive hypertension may be not up to 220 but holding SBP less than 180 in the morning. -Blood pressure 131 171 here, consider ambulatory blood pressure monitoring. Patient might benefit from more aggressive control. #Hyperlipidemia- continue statin as at home #Prophylaxis- DVT with Lovenox/SCDs, GI not indicated #Disposition - patient comes from independent living at home she recently filled out appeal ST form indicating she desires to be DO NOT RESUSCITATE Patient discharged back to home similar to prior living situation. Exam Vital Signs (Last) Date Time Temp Pulse Resp B/P Pulse Ox O2 Delivery O2 Flow Rate FiO2 01/13/17 08:45 36.5 61 12 131/75 97 Room Air Exam Gen.- A+ O 3 no apparent distress. Heavy white female Eyes- open conjunctiva clear, pupils equal nonicteric ENT- ears normal, nose normal Neck- supple/trach midline CVS- RRR Lungs- regular, nonlabored normal rateoft Musc- moving 4 no obvious deformity Neuro- cranial nerves II through XII intact, no focal deficits Skin- warm and dry, no rashes/lesions/wounds noted Psych- pleasant and appropriate, Test 01/12/17 11:56 01/12/17 13:21 01/12/17 13:42 White Blood Count 5.0th/mm3 (3.8-10.1) Red Blood Count 4.11mil/mm3 (3.90-5.20) Hemoglobin 12.6g/dL (12.0-15.6) Hematocrit 37.9% (35.0-46.0) Mean Corpuscular Volume 92.2fL (81-100) Mean Corpuscular Hemoglobin 30.7pg (27.0-35.0) Mean Corpuscular Hemoglobin Concent 33.2% (32.0-37.0) Red Cell Distribution Width 13.9% (12.3-15.4) Platelet Count 202bil/L (150-400) Neutrophils (%) (Auto) 56.9% (40-74) Lymphocytes (%) (Auto) 28.8% (14-46) Monocytes (%) (Auto) 10.3% (4-12) Eosinophils (%) (Auto) 3.2% (0-5) Basophils (%) (Auto) 0.6% (0-3) Prothrombin Time 9.9sec (8.1-12.5) Prothromb Time International Ratio 0.93ratio Activated Partial Thromboplast Time 27.6sec (22.8-33.0) Sodium Level 136mEq/L (134-144) Potassium Level 4.2mEq/L (3.5-5.2) Chloride Level 99mEq/L (97-108) Carbon Dioxide Level 20mmol/L (18-29) Blood Urea Nitrogen 17mg/dL (8-27) Creatinine 1.00mg/dL (0.57-1.00) Estimat Glomerular Filtration Rate 76mL/min (>59) Glucose Level 96mg/dL (60-99) Calcium Level 9.8mg/dL (8.5-10.1) Total Bilirubin 0.5mg/dL (0.0-1.2) Aspartate Amino Transf (AST/SGOT) 24U/L (0-50) Alanine Aminotransferase (ALT/SGPT) 21U/L (0-32) Alkaline Phosphatase 82U/L (25-165) Troponin T 0.010ug/L (0.0-0.011) Total Protein 8.2g/dL (6.4-8.4) Albumin 4.5g/dL (3.4-5.0) Urine Color Yellow (YELLOW) Urine Appearance Clear (CLEAR,HAZY) Urine pH 7.0 (5.0-8.0) Urine Specific [place] 1.010 (1.003-1.035) Urine Protein Negativemg/dL (NEG,TRACE) Urine Glucose (UA) Negativemg/dL (NEGATIVE) Urine Ketones Negativemg/dL (NEGATIVE) Urine Occult Blood Negative (NEGATIVE) Urine Nitrite Negative (NEGATIVE) Urine Bilirubin Negative (NEGATIVE) Urine Urobilinogen Normalmg/dL (NORMAL) Urine Leukocyte Esterase Negative (NEGATIVE) Urine RBC 0-2/hpf (0-2) Urine WBC 0-5/hpf (0-5) Urine Epithelial Cells Occasional/hpf (NONE-MOD) Urine Crystals None seen (NONE SEEN) Urine Bacteria None/hpf (NONE-FEW) Urine Hyaline Casts None/lpf (NONE) Urine Granular Casts None seen (NONE SEEN) Urine Waxy Casts None seen (NONE SEEN) Urine Red Blood Cell Casts None seen (NONE SEEN) Urine White Blood Cell Casts None seen (NONE SEEN) Urine Mucus None seen (None Seen) Urine Trichomonas None seen (NONE SEEN) Urine Yeast None (NONE SEEN) Urinalysis Comment None Urine Culture Reflexed Not indicated Hemoglobin A1c 5.9% (4.8-5.6) Magnesium Level 1.9mg/dL (1.6-2.6) Discharge Medications Discharge Medications Amlodipine (Amlodipine) 5 Mg Tablet 5 MG PO DAILY (Reported) Aspirin (Aspirin) 81 Mg Tablet 81 MG PO DAILY (Reported) Atorvastatin Calcium (Atorvastatin Calcium) 20 Mg Tablet 20 MG PO HS (Reported) Cholecalciferol (Vitamin D3) (Vitamin D) 1,000 Unit Capsule 1,000 UNIT PO BID ( Reported) Cyanocobalamin (Vitamin B-12) (Vitamin B-12) 500 Mcg Tab.subl 500 MCG SL BID ( Reported) Fish Oil/Dha/Epa (Fish Oil 1,200 mg Fish Oil) 1 Each Capsule 1 EACH PO BID ( Reported) Levothyroxine (Levothyroxine) 100 Mcg Tablet 100 MG PO DAILY (Reported) Losartan Potassium (Losartan Potassium) 50 Mg Tablet 50 MG PO DAILY (Reported) Oxybutynin Chloride (Oxybutynin Chloride) 5 Mg Tablet 5 MG PO BID (Reported) Miscellaneous Medications Melatonin/Herbal Complex #184 (Sleep Softgel) 1 Each Capsule 2 EACH PO (Reported ) Followup Plan Disposition: To home Follow-up plan call pcp on discharge [facility] Discharge Diet: Heart Healthy Patient Instructions If symptoms reccur don't or naything remotley resembling a stroke occur, get to the Hospital [facility] Follow-up Provider: Samantha Owens MD Attending Statement Patient had a straightforward TIA event and was not anticoagulated. Given her microvascular disease noted on MRI starting aspirin seems to be sufficient anticoagulation. If there is any question would refer on for neurology consult. At this time is seen straightforward enough that I do not think it is indicated. copies to: Samantha Owens MD, Andris E MD Jan 13, 2017 19:26
== END 2017-01-13 11:49 | disposition home or self-care (01) ==
LOC: SED 11:21 → MOC 13:45
PROVIDERS: ADMIT Hospitalist; ATTEND Hospitalist
DX: G45.9 Transient cerebral ischemic attack, unspecified (principal); I67.82 Cerebral ischemia; I12.9 Hypertensive chronic kidney disease with stage 1 through stage 4 chronic kidney disease, or unspecified chronic kidney disease; N18.2 Chronic kidney disease, stage 2 (mild); E78.5 Hyperlipidemia, unspecified; R73.03 Prediabetes; Z86.711 Personal history of pulmonary embolism
CPT/HCPCS: 36415; 70450; 70551; 80053; 81000; 83036; 83735; 84484; 85025; 85610; 85730; 92610; 93005; 93880; 99285; C8929; G0378; G8996; G8997; G8998; J1650